=== PATIENT | male | born 1995 | race Caucasian/White ===

== ENCOUNTER 2017-01-07 17:09 | Emergency (ER) | payer BC ==
[2017-01-07 17:37] VITALS: BP 131/74
--- NOTE | 2017-01-07 17:47 | UC ---
Eye Complaint HPI - HPI Summary HPI Summary: left eye redness x 1 day + discharge, photophobia , change in vision - History of Current Complaint Chief Complaint: UCEye Stated Complaint: LEFT EYE COMPLAINT Time Seen by Provider: 01/07/17 17:14 Hx Obtained From: Patient Onset/Duration: Gradual Onset, Lasting Days - 1, Still Present Timing: Constant Severity Initially: Moderate Severity Currently: Moderate Location of Injury: Conjunctiva Character: Foreign Body Sensation Aggravating Factor(s): Nothing Alleviating Factor(s): Nothing Associated Signs And Symptoms: Positive: Photophobia, Drainage (Clear), Drainage (Purulent), Vision Impairment Left. Negative: Fever, Swelling - Allergies/Home Medications Allergies/Adverse Reactions: Allergies Allergy/AdvReac Type Severity Reaction Status Date / Time No Known Allergies Allergy Verified 01/07/17 17:23 Home Medications: Home Medications Albuterol HFA INHALER* [Ventolin HFA Inhaler*] 2 puff INH Q4H PRN 01/07/17 [ History Confirmed 01/07/17] Cetirizine* [ZyrTEC 10 MG TAB*] 10 mg PO DAILY 01/07/17 [History Confirmed 01/07] Fluticasone-Salmeterol 250-50* [Advair Diskus 250-50*] 1 puff INH BID 01/07/17 [ History Confirmed 01/07/17] PMH/Surg Hx/FS Hx/Imm Hx Previously Healthy: Yes - Surgical History Surgical History: Yes Surgery Procedure, Year, and Place: MAXILO FACIAL SURGERY, WITH GENIOPLASTY - Family History Known Family History: Negative: Diabetes - Social History Alcohol Use: Occasionally Substance Use Type: None Smoking Status (MU): Never Smoked Tobacco Review of Systems Constitutional: Negative Skin: Negative Eyes: Blurred Vision, Drainage, Eye Redness, Photophobia ENT: Negative Respiratory: Negative Cardiovascular: Negative Gastrointestinal: Negative Is Patient Immunocompromised?: No All Other Systems Reviewed And Are Negative: Yes Physical Exam Triage Information Reviewed: Yes Appearance: Well-Appearing, No Pain Distress, Well-Nourished Vital Signs: Initial Vital Signs Temp 98.6 F 01/07/17 17:24 Pulse 73 01/07/17 17:24 Resp 16 01/07/17 17:24 BP 131/74 01/07/17 17:24 Pulse Ox 97 01/07/17 17:24 Vital Signs Reviewed: Yes Eyes: Positive: Conjunctiva Inflamed, Discharge - left eye, Other: - photophobia left eye ENT: Positive: Normal ENT inspection, Hearing grossly normal, Pharynx normal Neck: Positive: Supple, Nontender, No Lymphadenopathy Respiratory: Positive: Chest non-tender, Lungs clear, Normal breath sounds Cardiovascular: Positive: RRR, No Murmur, Pulses Normal Skin Exam: Normal Eye Complaint Course/Dx - Differential Dx/Diagnosis Provider Diagnoses: conjunctivitis. iritis Discharge - Discharge Plan Condition: Stable Disposition: HOME Prescriptions: Tobramycin/Dexameth OPTH.SUSP* [Tobradex 0.3-0.1%*] 1 drop BOTH EYES Q4H #1 btl Patient Education Materials: Iritis (ED), Conjunctivitis (ED) Additional Instructions: follow up in 2 days if not better , sooner if getting worse
== END 2017-01-07 18:18 | disposition home or self-care (01) ==
LOC: UCCORT 17:09
DX: H10.32 Unspecified acute conjunctivitis, left eye (principal); H20.9 Unspecified iridocyclitis
CPT/HCPCS: 99202; G0463